=== PATIENT | male | born 1995 | race Caucasian/White ===

== ENCOUNTER 2023-02-13 13:18 | Outpatient (CLI) | payer BC, SELFPAY ==
--- NOTE | ~2023-02-13 | XR_ITS ---
Thoracic spine: Clinical Indication: Back pain AP and lateral views were performed. No fracture is seen. There is normal alignment of the vertebrae. The intervertebral disc spaces appe ar normal. Paravertebral soft tissues appear normal. Impression: No significant abnormalities noted. Reviewed, dictated and finalized at [facility]. Impression: No significant abnormalities noted.
--- NOTE | ~2023-02-13 | XR_ITS ---
Lumbosacral Spine: AP and lateral views Clinical History: Pain Findings: The normal lordotic curve is maintained. The vertebral bodies and posterior elements are i ntact. The intervertebral disc spaces are preserved. The sacroiliac joints are normally outlined. Impression: No significant abnormality. Reviewed, dictated and finalized at [facility]. Impression: No significant abnormality.
== END 2023-02-13 13:19 | disposition home or self-care (01) ==
LOC: ANHIMG 13:26
PROVIDERS: Visit Provider Family Medicine
DX: R10.9 Unspecified abdominal pain (principal)
CPT/HCPCS: 72072; 72100

== ENCOUNTER 2023-03-13 13:15 | Outpatient (CLI) | payer BC, SELFPAY ==
--- NOTE | ~2023-03-13 | XR_ITS ---
EXAMINATION: XR ribs LT 2V w CXR 2V INDICATION: Chest pain TECHNIQUE: PA and lateral views of the chest and four views of the left ribs were obtained. COMPARISON: None. FINDINGS: The lungs are free of acute opacities. No pleural effusion or pneumothorax. The cardiomedia stinal silhouette is normal. The visualized bones and soft tissues are unremarkable. No displaced rib fracture is identified. There appears to be calcific tendinitis in the left shoulder. IMPRESSION: 1. No acute cardiopulmonary abnormality or evidence of displaced rib fracture. Reviewed, dictated and finalized at location [facility].
== END 2023-03-13 13:16 | disposition home or self-care (01) ==
PROVIDERS: PCP Family Medicine; Visit Provider Family Medicine
DX: R07.89 Other chest pain (principal)
CPT/HCPCS: 71046; 71100

== ENCOUNTER 2023-04-23 04:28 | Day surgery (SDC) | payer BC, SELFPAY ==
[2023-04-18 09:47] VITALS: BMI 28.3
[2023-04-23 07:53] VITALS: BP 158/76; PULSE 61; RESP 20; TEMP 36.2; O2SAT 100; BMI 26.9
[2023-04-23] MEDS: LACTATED RINGERS 1,000 ML 150 ML IV CONT (08:04)
--- NOTE | 2023-04-23 08:36 | WPDANESEPPF ---
Anes - Initial Pre Proc Eval Procedure: Operation Date: 04/23/23 09:00 Proposed Procedures p Esophagogastroduodenoscopy & Colonoscopy - Rome Garcia MD Date/Time: 04/23/23 08:36 Surgeon: Rome Garcia MD Pre Op Diagnosis: Left Upper Quad Pain,Melena, Patient Data Age: 27 Gender: M Height: 1.88 m Weight: 95 kg Last Vital Signs Temp 97.1 F L 04/23/23 07:53 Pulse 61 04/23/23 07:53 Resp 20 04/23/23 07:53 BP 158/76 H 04/23/23 07:53 Pulse Ox 100 04/23/23 07:53 O2 Del Method Room Air 04/23/23 07:53 Allergies Allergy/AdvReac Type Severity Reaction Status Date / Time No Known Allergies Allergy Verified 04/23/23 07:52 Home Medications Medication Instructions Recorded Confirmed Type omeprazole 20 mg capsule,delayed 20 mg PO DAILY #30 caps 03/27/23 04/23/23 Rx release Patient hx anesthesia problems: none Family hx anesthesia problems: none Results Review: All pre-operative results and documents have been reviewed as part of the pre-operative evaluation. [facility] Past Medical History Medical History (Updated 03/27/23 @ 15:52 by Valencia Kimball APRN) Epigastric abdominal tenderness Hematochezia LUQ pain Family History Family History (Updated 03/27/23 @ 15:35 by Helena Martin MA) Mother Cancer Father Hypertension Cerebrovascular accident Social History Social History (Updated 03/27/23 @ 15:35 by Helena Martin MA) Smoking status: Never smoker Second hand tobacco smoke exposure: No Alcohol intake: never Substance use: current Substance use type: marijuana Living arrangements: with family Occupation/Education: occupation Gender identity (if verbalized by the patient): Male Spiritual care concerns: No Anes - Eval Final PreProcedure Day of Procedure 04/23/23 08:36 Patient weight: normal Heart: regular rate and rhythm Lungs: clear to auscultation Airway: Mallampati scale class II Neurological: alert and oriented Last oral intake: >/= 8 hours ASA classification: II Emergent: no Anesthetic plan: proceed Anesthesia type and monitoring: general GIVS and standard monitoring Results Review: All pre-operative results and documents have been reviewed as part of the pre-operative evaluation. Informed Consent: The patient's anesthetic plan and its attendant risks and benefits were discussed with the patient/family/POA. Questions were solicited and answers provided to the satisfaction of the patient/family/POA.
--- NOTE | 2023-04-23 08:43 | WPDHPUPDATE1 ---
History and Physical Update Update Date/Time: 04/23/23 08:43 History and Physical has been reviewed, including an updated exam of the patient. There are NO changes in the patient's condition. Risks, benefits, and alternatives have been discussed and questions answered. Patient agrees to proceed with procedure.
--- NOTE | 2023-04-23 09:00 | SUR.OPER ---
EGD began at 0852 and ended at 0856. Colonoscopy began at 0900.
[2023-04-23 09:16] VITALS: BP 117/93; PULSE 52; RESP 14; O2SAT 98
[2023-04-23 09:26] VITALS: BP 101/75; PULSE 60; RESP 18; O2SAT 100
[2023-04-23 09:36] VITALS: BP 116/69; PULSE 53; RESP 15; O2SAT 99
== END 2023-04-23 09:45 | disposition home or self-care (01) ==
PROVIDERS: PCP Family Medicine; Visit Provider Internal Medicine Gastroenterology
PROC: 0DJ08ZZ Inspection of Upper Intestinal Tract, Via Natural or Artificial Opening Endoscopic (ICD-10-PCS; CPT 43235; principal; 2023-04-23 09:00)
DX: K64.8 Other hemorrhoids (principal); R10.12 Left upper quadrant pain; F12.90 Cannabis use, unspecified, uncomplicated
CPT/HCPCS: 45378; 43239; 88305; J2001; J2405; J2704; J3010; J7120